=== PATIENT | female | born 1985 | race Caucasian/White ===

== ENCOUNTER 2024-05-27 09:52 | Outpatient (OUT) | payer OTHER, SELFPAY ==
--- NOTE | 2024-05-27 10:12 | XR_ITS ---
The [address] [address] Patient Name: KIET GAYTAN MRN: [id number] date: 1985 Sex: F Assigned Patient Location: LAB Current Patient Location: Accession/Order Number: [id number] Exam Date: 05/27/2024 10:20 Report Date: 05/29/2024 06:39 At the request of: RAMIREZ EDWARDS Procedure: XR abdomen min 2V EXAMINATION: XR abdomen min 2V HISTORY: generalized abdominal pain COMPARISON: No relevant comparison available. FINDINGS: BOWEL GAS PATTERN: Multiple small fluid levels scattered within the upper abdomen suspected to be within the colon. No abnormal bowel dilation. FREE AIR: None. CALCIFICATIONS: Pelvic calcifications favor phleboliths. BONES: No fracture or visible bone lesion. OTHER: Negative. XR/XR abdomen min 2V IMPRESSION: 1. No bowel obstruction. Possible enteritis or colitis. Electronically authenticated by: BERKLEY REYES Date: 05/29/2024 06:39
[2024-05-27 11:05] LABS: Alanine Aminotransferase 21 U/L (14-59); Albumin Globulin Ratio 0.8; Albumin Level 3.4 g/dL (3.4-5.0); Alkaline Phosphatase 82 U/L (46-116); Amylase 57 U/L (25-115); Anion Gap 12.2; Aspartate Amino Transferase 16 U/L (15-37); BUN Creatinine Ratio 9.1; Bilirubin Direct 0.1 mg/dL (0.0-0.2); Bilirubin Total 0.6 mg/dL (0.2-1.0); Carbon Dioxide 28.7 mmol/L (21.0-32.0); Chloride 102 mmol/L (98-107); Estimated GFR (African America >60 (>=60 mL/min/1.73m^2); Estimated GFR (Non-African Ame >60 (>=60 mL/min/1.73m^2); Globulin 4.3 g/dL; Glucose 85 mg/dL (74-106); Potassium 3.9 mmol/L (3.5-5.1); Sodium 139 mmol/L (136-145); Total Protein 7.7 g/dL (6.4-8.2)
== END 2024-05-27 09:53 | disposition home or self-care (01) ==
PROVIDERS: PCP Family Medicine; Visit Provider Family Medicine
DX: R10.84 Generalized abdominal pain (principal)
CPT/HCPCS: 36415; 74019; 80048; 80076; 82150; 83690